=== PATIENT | female | born 1940 | race Caucasian/White ===

== ENCOUNTER 2019-10-22 05:26 | Day surgery (SDC) | payer OTHER ==
[~2019-10-22 05:26] MED LIST: COZAAR100 MG PO; GLIPIZIDE-METF1 EAC1 PO; HYDRALAZINE HCL25 MG PO; NORVASC10 MG PO; PLAVIX75 MG PO; ZETIA10 MG PO
[2019-10-22] MEDS ORDERED: PERCOCET 5-3251 EACH PO (10:04)
== END 2019-10-22 12:45 | disposition home or self-care (01) ==
LOC: CIR.AMB 05:26
DX: C73 Malignant neoplasm of thyroid gland (principal)

== ENCOUNTER 2021-03-14 06:00 | Day surgery (SDC) | payer OTHER ==
[~2021-03-14 06:00] MED LIST changes: +PERCOCET 5-3251 EACH PO; +SYNTHROID50 MCG PO
[2021-03-14] MEDS ORDERED: DUI500 PO (14:38)
[2021-03-14] MEDS ORDERED: ULTRAM50 MG PO (14:38)
== END 2021-03-14 18:30 | disposition home or self-care (01) ==
LOC: CIR.AMB 06:00
PROVIDERS: ATTEND Orthopaedic Surgery Sports Medicine
DX: S52.531A Colles' fracture of right radius, initial encounter for closed fracture (principal); Z20.822 Contact with and (suspected) exposure to COVID-19
CPT/HCPCS: 25609; C1776

== ENCOUNTER → 2022-11-30 08:00 | Outpatient (CLI) | payer OTHER ==
[~2022-11-30] VITALS: Ht 160 cm; Wt 71.7 kg
[~2022-11-30 08:00] MED LIST changes: +DUI500 PO; +ULTRAM50 MG PO
== END | disposition home or self-care (01) ==
LOC: LAB 08:00 → SURH 12-04 07:00 → EDSTATUS 12-04 08:45
PROVIDERS: ATTEND Orthopaedic Surgery Sports Medicine
DX: Z01.818 Encounter for other preprocedural examination (principal); D68.9 Coagulation defect, unspecified; I10 Essential (primary) hypertension; Z20.822 Contact with and (suspected) exposure to COVID-19; M17.11 Unilateral primary osteoarthritis, right knee

== ENCOUNTER 2023-09-21 07:45 | Inpatient (IN) | payer OTHER ==
[~2023-09-21] VITALS: Ht 160 cm; Wt 72.6 kg
[2023-09-21 10:23] LABS: HEMATOCRIT 42.5 % (36.0-45.00); HEMOGLOBIN 13.9 g/dL (12.0-15.00); MEAN CELL VOLUME 93.5 fL (80.00-100.00); MEAN CORPUSCULAR HEMOGLOBIN 30.7 pg (27.00-32.0); MEAN CORPUSCULAR HGB CONC 32.8 g/dl (32.0-36.0); PLATELET COUNT 267 K/uL (150-450); RED BLOOD COUNT 4.54 M/uL (4.00-6.00)
[2023-09-21 10:43] LABS: INR 0.99; PARTIAL THROMBOPLASTIN TIME 33.2 SECONDS (22.0-34.0); PROTHROMBIN TIME 10.4 SECONDS (9.0-11.5)
[2023-09-21 10:52] LABS: ALBUMIN 4.1 gm/dL (3.4-5.0); BILIRUBIN TOTAL 1.07 mg/dL (0.3-1.2); CALCIUM 10.6 mg/dL (8.5-10.1); CREATININE SERUM 0.59 mg/dL (0.55-1.02); GFR 97.11; GLOBULINA 3.3 G/DL (2.4-3.5); POTASSIUM 4.03 mEq/L (3.5-5.1); TOTAL PROTEIN 7.4 gm/dL (6.4-8.2)
[2023-09-21 11:02] LABS: PH,URINE 7.5 (5.0-8.0); URINE APPEARANCE Clear; URINE BILIRRUBIN Negative (NEGATIVE); URINE BLOOD Negative; URINE COLOR Yellow; URINE GLUCOSE Negative (NEGATIVE); URINE LEUKOCYTE Negative; URINE NITRATE Negative; URINE PROTEIN Negative (NEGATIVE); URINE UROBILINOGEN 0.2 E.U./dl
[2023-09-21 11:06] LABS: URINE BACTERIA 12.5 uL (0.0-1933); URINE EPITHELIAL CELLS 2.1 uL (0.0-38.8)
[2023-09-21 11:31] LABS: URINE RBC 1.7 uL (0.0-20.8); URINE WBC 0.6 uL (0.0-23.2)
[2023-09-24] MEDS ORDERED: ATORVASTATIN CA20 MG (08:52)
[2023-09-24] MEDS ORDERED: EZETIMIBE10 MG (08:53)
[2023-09-24] MEDS ORDERED: ALLERGY RELIEF10 MG (08:53)
[2023-09-24 17:07] LABS: HEMATOCRIT 36.5 % (36.0-45.00); RED BLOOD COUNT 3.91 M/uL (4.00-6.00)
[2023-09-25 07:27] LABS: HEMATOCRIT 35.7 % (36.0-45.00); MEAN CORPUSCULAR HEMOGLOBIN 31.7 pg (27.00-32.0); MEAN CORPUSCULAR HGB CONC 33.7 g/dl (32.0-36.0); PLATELET COUNT 210 K/uL (150-450); RED BLOOD COUNT 3.79 M/uL (4.00-6.00); RED CELL DISTRIBUTION WIDTH 13.5 % (11.5-14.5)
[2023-09-26] MEDS ORDERED: OXYC1TAB9 PO (06:40)
[2023-09-26] MEDS ORDERED: XARELTO10 MG PO (06:40)
[2023-09-26] MEDS ORDERED: INTEGRA PLUS C1 EACH PO (06:40)
[2023-09-26] MEDS ORDERED: BACTRIM DS TAB1 EACH PO (06:40)
[2023-09-26 07:18] LABS: HEMATOCRIT 33.1 % (36.0-45.00); HEMOGLOBIN 11.2 g/dL (12.0-15.00); MEAN CELL VOLUME 93.6 fL (80.00-100.00); MEAN CORPUSCULAR HEMOGLOBIN 31.7 pg (27.00-32.0); MEAN CORPUSCULAR HGB CONC 33.8 g/dl (32.0-36.0); PLATELET COUNT 186 K/uL (150-450); RED BLOOD COUNT 3.54 M/uL (4.00-6.00); RED CELL DISTRIBUTION WIDTH 13.7 % (11.5-14.5)
== END 2023-09-26 16:25 | DRG 470 ==
LOC: SURH 09-24 07:15 → O/R 09-24 07:15 → SURH 09-24 07:45
PROVIDERS: ADMIT Orthopaedic Surgery Sports Medicine; ATTEND Orthopaedic Surgery Sports Medicine
PROC: 0SRC0J9 Replacement of Right Knee Joint with Synthetic Substitute, Cemented, Open Approach (ICD-10-PCS; principal; 2023-09-24 10:30)
DX: M17.11 Unilateral primary osteoarthritis, right knee (principal)